=== PATIENT | male | born 1940 | race Hispanic/Latino ===

== ENCOUNTER 2022-05-18 11:52 | Emergency (ER) | payer OTHER ==
[~2022-05-18] VITALS: Ht 165.1 cm; Wt 80.7 kg
[2022-05-18] MEDS ORDERED: SODIUM CHLORIDE 0.9% 1000ML 1,000 ML IV SCH (12:30)
[2022-05-18] MEDS ORDERED: BEBTELOVIMAB 175 MG INJ IV ONE ×2 (12:31→13:30)
[2022-05-18] MEDS ORDERED: ACETAMINOPHEN 325 MG TAB ONE (12:48)
[2022-05-18] MEDS ORDERED: ACETAMINOPHEN 325 MG TAB PO ONE (13:00)
[2022-05-18 13:44] VITALS: BP 126/71
== END 2022-05-18 13:47 | disposition home or self-care (01) ==
LOC: FSED 11:56
DX: R50.9 Fever, unspecified (principal); U07.1 COVID-19; R05.9 Cough, unspecified; I10 Essential (primary) hypertension; K21.9 Gastro-esophageal reflux disease without esophagitis; N40.1 Benign prostatic hyperplasia with lower urinary tract symptoms
CPT/HCPCS: 71046; 80053; 81003; 82553; 84484; 85025; 93005; 99284; J7030

== ENCOUNTER → 2025-07-12 | Outpatient (REF) | payer MEDICARE ==
[~2025-07-12] MED LIST: IOPAMIDOL 370 MG/ML 100 ML INFUS..BTL INJ ONE; METOPROLOL TARTRATE INJ 1 MG/ML VIAL ONE; NITROGLYCERIN 0.4 MG SUBL ONE; SODIUM CHLORIDE 0.9% 100 ML ONE
[2025-07-12 09:53] LABS: EST GLOMERULAR FILTRATION RATE 89.0 ML/MIN (>=60)
== END ==
LOC: CT 08:54
PROVIDERS: ATTEND Internal Medicine Cardiovascular Disease
DX: I25.10 Atherosclerotic heart disease of native coronary artery without angina pectoris (principal); R94.39 Abnormal result of other cardiovascular function study
CPT/HCPCS: 36415; 75574; 75580; 82565; 84520; J7050; Q9967